=== PATIENT | male | born 1965 ===

== ENCOUNTER 2020-01-02 16:09 | Outpatient (REF) | payer OTHER, SELFPAY ==
[2020-01-02 16:51] LABS: Basophils Percent Auto 0.5 % (0-2); Eosinophils Absolute Auto 0.2 X10*3/uL (0.0-0.4); Eosinophils Percent Auto 4.5 % (0-4); Hematocrit 44.6 % (42-52); Hemoglobin 14.6 g/dl (14.0-18.0); Lymphocytes Absolute Auto 2.1 X10*3/uL (1.2-4.9); Lymphocytes Percent Auto 54.8 % (20-40); MANUAL DIFF FLAG NO; Mean Corpuscular HGB Conc 32.7 g/dl (31.0-36.0); Mean Corpuscular Hemoglobin 28.9 pg (27.0-33.0); Mean Corpuscular Volume 88.3 fL (80-98); Mean Platelet Volume 10.7 fL (9.4-12.4); Monocytes Absolute Auto 0.4 X10*3/uL (0.1-1.2); Monocytes Percent Auto 10.9 % (2-11); Neutrophils Absolute Auto 1.1 X10*3/uL (2.0-8.3); Neutrophils Percent Auto 29.3 % (45-73); Platelet Count 199 X10*3/uL (160-400); Red Blood Count 5.05 X10*6/uL (4.60-5.80); Red Cell Distribution Width 13.3 % (11.0-16.0); White Blood Count 3.8 X10*3/uL (4.8-10.8)
[2020-01-02 17:15] LABS: Alanine Aminotransferase 22 U/L (0-40); Albumin Level 4.5 g/dL (3.5-5.0); Alkaline Phosphatase 80 U/L (39-117); Anion Gap 11 (12-20); Aspartate Amino Transferase 22 U/L (5-37); Bilirubin Total 0.9 mg/dL (0.0-1.0); Blood Urea Nitrogen 22 mg/dL (9-16); Calcium 9.1 mg/dL (8.4-10.2); Carbon Dioxide 31 mmol/L (22-29); Chloride 99 mmol/L (96-108); Cholesterol 253 mg/dL; Estimated Glomerular Filt Rate > 60; Glucose Random 111 mg/dL (60-115); HDL Cholesterol 37 mg/dL; LDL Cholesterol Calculated 177 mg/dl; Potassium 4.4 mmol/l (3.3-5.1); Sodium 137 mmol/L (135-145); Total Protein 7.2 g/dL (6.5-8.0); Triglycerides 198 mg/dL
[2020-01-02 17:36] LABS: Thyroid Stimulating Hormone 1.65 uIU/mL (0.32-4.0)
== END 2020-01-02 16:10 | disposition home or self-care (01) ==
LOC: HO.LAB 16:09
PROVIDERS: PCP Internal Medicine; Visit Provider Internal Medicine
DX: E78.00 Pure hypercholesterolemia, unspecified (principal); S30.860A Insect bite (nonvenomous) of lower back and pelvis, initial encounter; W57.XXXA Bitten or stung by nonvenomous insect and other nonvenomous arthropods, initial encounter
CPT/HCPCS: 36415; 80053; 80061; 84153; 84443; 85025

== ENCOUNTER 2020-01-28 16:07 | Outpatient (REF) | payer OTHER, SELFPAY ==
[2020-01-30 18:11] LABS: Lyme Abs Screen <0.90 index
== END 2020-01-28 16:08 | disposition home or self-care (01) ==
LOC: HO.LAB 16:07
PROVIDERS: PCP Internal Medicine; Visit Provider Internal Medicine
DX: S30.860A Insect bite (nonvenomous) of lower back and pelvis, initial encounter (principal)
CPT/HCPCS: 86618

== ENCOUNTER 2022-05-13 09:07 | Outpatient (REF) | payer OTHER, SELFPAY ==
[2022-05-13 09:21] LABS: MANUAL DIFF FLAG NO
[2022-05-13 09:28] LABS: Basophils Percent Auto 0.5 % (0-2); Eosinophils Absolute Auto 0.2 X10*3/uL (0.0-0.4); Eosinophils Percent Auto 4.9 % (0-4); Hematocrit 43.5 % (42.0-52.0); Hemoglobin 14.7 g/dl (14.0-18.0); Imm Gran Abs Auto 0.01 X10*3/uL (0.00-0.03); Imm Gran Pct Auto 0.3 % (0.0-0.4); Mean Corpuscular HGB Conc 33.8 g/dl (31.0-36.0); Mean Corpuscular Hemoglobin 29.3 pg (27.0-33.0); Mean Corpuscular Volume 86.8 fL (80.0-98.0); Mean Platelet Volume 10.1 fL (9.4-12.4); Monocytes Absolute Auto 0.3 X10*3/uL (0.1-1.2); Monocytes Percent Auto 8.7 % (2-11); Neutrophils Absolute Auto 1.1 x10*3/uL (2.0-8.3); Neutrophils Percent Auto 30.6 % (45-73); Platelet Count 207 X10*3/uL (160-400); Red Blood Count 5.01 X10*6/uL (4.60-5.80); Red Cell Distribution Width 13.4 % (11.0-16.0); White Blood Count 3.7 X10*3/uL (4.8-10.8)
[2022-05-13 10:03] LABS: Appearance Urine Cloudy; Color Urine Yellow; Glucose Urine UA Negative (Negative); Leukocyte Esterase Urine Negative (Negative); Nitrite Urine Negative (Negative); Specific Gravity - Urine <= 1.005 (1.005-1.025); Urine Blood Negative (Negative); Urine Ketones Negative (Negative); Urine Protein Negative (Neg-Trace)
[2022-05-13 10:06] LABS: Estimated Average Glucose 114 mg/dL; Hemoglobin A1c % 5.6 %
[2022-05-13 10:15] LABS: Alanine Aminotransferase 15 U/L (0-40); Albumin Level 4.2 g/dL (3.5-5.0); Alkaline Phosphatase 80 U/L (39-117); Anion Gap 12 (12-20); Aspartate Amino Transferase 22 U/L (5-37); Bilirubin Total 1.7 mg/dL (0.0-1.0); Blood Urea Nitrogen 14 mg/dL (9-16); Calcium 8.9 mg/dL (8.4-10.2); Carbon Dioxide 27 mmol/L (22-29); Chloride 104 mmol/L (96-108); Cholesterol 266 mg/dL; Estimated Glomerular Filt Rate > 60; Glucose Random 85 mg/dL (60-115); HDL Cholesterol 39 mg/dL; LDL Cholesterol Calculated 196 mg/dl; Potassium 4.3 mmol/L (3.3-5.1); Sodium 139 mmol/L (135-145); Total Protein 6.8 g/dL (6.5-8.0); Triglycerides 159 mg/dL
[2022-05-13 10:31] LABS: Folate 7.3 ng/mL (> or = 4.0); Free T4 (Free Thyroxine) 1.04 ng/dL (0.71-1.85); Prostate Specific Antigen Scr 0.52 ng/mL (<0.05-4.0); Thyroid Stimulating Hormone 1.16 uIU/mL (0.32-4.0); Vitamin B12 325 pg/mL (200-900)
== END 2022-05-13 09:08 | disposition home or self-care (01) ==
LOC: HO.LAB 09:07
PROVIDERS: PCP Internal Medicine; Visit Provider Internal Medicine
DX: Z12.5 Encounter for screening for malignant neoplasm of prostate (principal); R39.9 Unspecified symptoms and signs involving the genitourinary system; R73.02 Impaired glucose tolerance (oral); E78.00 Pure hypercholesterolemia, unspecified
CPT/HCPCS: 36415; 80053; 80061; 81003; 82607; 82746; 83036; 84153; 84439; 84443; 85025

== ENCOUNTER 2022-07-11 08:09 | Day surgery (SDC) | payer OTHER, SELFPAY ==
[2022-07-07 14:40] VITALS: BMI 26.4
--- NOTE | 2022-07-10 10:57 | HO.ANESPROP2 ---
Documented by User: Tayler Chapa NP 07/10/22 10:58 HPI - Anesthesia Eval Consult details Narrative: 56yo M for Colonoscopy PMFSH Active Problems Active Problems: All Active Problems (Updated 11/17/21 @ 15:35 by KALEY Higgins) Pre-op examination (Acute) COVID-19 virus infection (Acute) Colon cancer screening (Acute) Carpal tunnel syndrome (Acute) Annual physical exam (Acute) Abnormal blood pressure (Acute) Impaired glucose tolerance (Acute) Tick bite of back (Acute) Hypercholesterolemia (Acute) Past Medical History Medical History (Updated 11/17/21 @ 15:35 by KALEY Higgins) Carpal tunnel syndrome Hypercholesterolemia Rotator cuff tear Tear of right biceps muscle Family History Family History (Updated 11/17/21 @ 15:31 by NAOMI Martin) Father Myocardial infarction Mother No problems noted. Maternal Uncle Myocardial infarction Family/Other Leukemia Surgical History Surgical History (Updated 10/13/21 @ 17:00 by Kateryna Pierce MD) History of repair of rotator cuff Hx of tonsillectomy Social History Social History (Updated 10/13/21 @ 17:01 by Kateryna Pierce MD) Housing: House Alcohol intake: current Alcohol intake frequency: holidays/special occasions only Patient Tobacco Use Status: Never used Tobacco e-Cigarette/Vaping Use: Never Used Second Hand Smoke Exposure: No Current occupational status: employed Cognitive needs: No Hearing needs: No Vision needs: Yes Meds Allergies Allergy/AdvReac Type Severity Reaction Status Date / Time Penicillins [PENICILLINS] Allergy Unknown RASH Verified 11/17/21 15:32 Seasonal Allergy Unknown Unknown Uncoded 10/13/21 16:06 Home Medications Medication Instructions Recorded Confirmed Last Taken Type No Known Home Meds 07/11/22 07/11/22 Unknown History Exam Exam Date and Time: July 10, 2022 1057 Height,Weight and Vital Signs: Height 5 ft 4.5 in Weight 70.76 kg Pertinent Lab Results Pertinent Lab Results: Laboratory Tests 05/13/22 05/13/22 09:19 09:19 WBC 3.7 L Hgb 14.7 Hct 43.5 Plt Count 207 Sodium 139 Potassium 4.3 Chloride 104 Carbon Dioxide 27 BUN 14 Creatinine 1.13 Assessment and Plan Assessment Anesthesia Assessment: Chart Reviewed Documented by User: Gian Romo MD 07/11/22 17:34 [facility] Past Medical History Medical History (Updated 11/17/21 @ 15:35 by KALEY Higgins) Carpal tunnel syndrome Hypercholesterolemia Rotator cuff tear Tear of right biceps muscle Functional capacity: independent ambulation Family History Family History (Updated 11/17/21 @ 15:31 by NAOMI Martin) Father Myocardial infarction Mother No problems noted. Maternal Uncle Myocardial infarction Family/Other Leukemia Family history of problems with anesthesia: No Surgical History Surgical History (Updated 10/13/21 @ 17:00 by Kateryna Pierce MD) History of repair of rotator cuff Hx of tonsillectomy History of Problems with Anesthesia: No Social History Social History (Updated 10/13/21 @ 17:01 by Kateryna Pierce MD) Housing: House Alcohol intake: current Alcohol intake frequency: holidays/special occasions only Patient Tobacco Use Status: Never used Tobacco e-Cigarette/Vaping Use: Never Used Second Hand Smoke Exposure: No Current occupational status: employed Cognitive needs: No Hearing needs: No Vision needs: Yes Meds Allergies Allergy/AdvReac Type Severity Reaction Status Date / Time Penicillins [PENICILLINS] Allergy Unknown RASH Verified 11/17/21 15:32 Seasonal Allergy Unknown Unknown Uncoded 10/13/21 16:06 Home Medications Medication Instructions Recorded Confirmed Last Taken Type No Known Home Meds 07/11/22 07/11/22 Unknown History Exam Airway Mallampati Class: III TM Dist: >3cm Neck ROM: Full Loose/Missing/Broken Teeth: Yes Assessment and Plan Assessment Anesthesia Assessment: Anesthesia Plan Discussed Final Anesthetic Review Family History of Problems with Anesthesia: No History of Problems with Anesthesia: No NPO: Yes ASA Class: II Final Preanesthetic Review: Meds/Allgs Chart Reviewed, Consent Obtained/Reviewed and Anes Risks/Benef Reviewed Patient Risk: Intermediate Procedure Risk: Intermediate Anesthetic Plan Anesthetic Plan: MAC: and Agree w/ Assess. and Plan Disposition: Standard PACU
[2022-07-11 08:12] VITALS: BP 187/91; PULSE 64; RESP 20; TEMP 36.1; O2SAT 100
[2022-07-11 08:27] VITALS: BP 164/74
[2022-07-11] MEDS: Lactated Ringers 1,000 ML 100 ML IVCONT (08:33)
--- NOTE | 2022-07-11 09:03 | MHC.SHP ---
Pre-Procedural Eval Section A Date of Service: 07/11/22 Section B Chief Complaint: screening Relevant Family History (Specify if Yes): No Relevant Social History: None Present Medications: see Short Stay Collaborative assessment Medical History: Significant History (Carpal tunnel syndrome Hypercholesterolemia Rotator cuff tear Tear of right biceps muscle) History of Previous Operations: Relevant previous surgery/procedure and date(s) (rotator cuff repair and tonsil removal ) Allergies: Allergies Allergy/AdvReac Type Severity Reaction Status Date / Time Penicillins [PENICILLINS] Allergy Unknown RASH Verified 11/17/21 15:32 Seasonal Allergy Unknown Unknown Uncoded 10/13/21 16:06 Review of Systems Sugical H&P ROS: Negative: Constitution, Cardiovascular, Respiratory, Neurological, Psychiatric, Hem-Onc, Allergic/Immunologic, Gastrointestinal, Genitourinary, Musculoskeletal, Integumentary, Endocrine and Eyes/Ears/Nose/Throat Exam Surgical H&P Exam: Normal: HEENT, Normal: Heart, Normal: Lungs, Normal: Extremities, Normal: Abdomen, Normal: Skin and Normal: Neurological Plan Diagnosis/Plan: Unchanged I have reviewed the history and physical and performed a pertinent physical examination on my patient. No changes have occurred unless specified. Time Spent With Patient Time: Total time managing care of this patient today ____ minutes.
--- NOTE | 2022-07-11 09:04 | W.PM.OPN ---
Operative Note Operative Note Date of Service: 07/11/22 Narrative: Operative Information Procedure Description: Colonoscopy Indication: screening Anesthesia: MAC COLONOSCOPY Instrument: Olympus variable stiffness pediatric scope 190L Colonoscopy Monitoring: Vital signs and clinical assessment, continuous EKG monitoring, Pulse oximetry, Carbon Dioxide monitoring and blood pressure monitoring were done throughout the procedure. Colon withdrawal time was 13 minutes. Procedure: The patient was placed in the left lateral decubitis position and pre-procedure medications were administered. After a digital rectal examination of the ano-rectum, the video colonoscope was inserted into the rectum and advanced through the colon to the cecum/TI. The colonoscope was slowly withdrawn in a retrograde panoramic fashion and the colon mucosa was carefully examined including a retroflexed view of the rectum. Findings and interventions are described below. Procedure Difficulty: easy Findings: Terminal Ileum-normal Cecum: 5-7 mm sessile polyp removed with cold forceps Ascending Colon: normal Transverse Colon -normal Descending Colon:normal Sigmoid Colon: normal Rectum: Retroflexion with small internal hemorrhoids, grade I Anorectum - normal Colon preparation: Towner Bowel Preparation Scale Right colon; 2 Transverse colon: 2 Left colon; 2 (0 = Unprepared colon segment with mucosa not seen due to solid stool that cannot be cleared. 1 = Portion of mucosa of the colon segment seen, but other areas of the colon segment not well seen due to staining, residual stool and/or opaque liquid. 2 = Minor amount of residual staining, small fragments of stool and/or opaque liquid, but mucosa of colon segment seen well. 3 = Entire mucosa of colon segment seen well with no residual staining, small fragments of stool or opaque liquid) Impression and Post Procedure Diagnosis: polyp internal hemorrhoids Plan: High fiber diet leaflet Avoid straining at stool, epsom salts and sitz bath, anusol supps or cream Repeat Colonoscopy in 5-7 years due to adenomatous appearing polyp or earlier if clinically indicated Above findings were reviewed with the patient and relevant handouts were provided if indicated.
[2022-07-11 09:33] VITALS: BP 96/48; PULSE 71; RESP 16; TEMP 36.2; O2SAT 98
[2022-07-11 09:48] VITALS: BP 92/46; PULSE 59; RESP 16
[2022-07-11 10:03] VITALS: BP 101/56; PULSE 58; RESP 16; O2SAT 99
[2022-07-11 10:18] VITALS: BP 124/64; PULSE 55; RESP 13; TEMP 36.2; O2SAT 96
== END 2022-07-11 10:51 | disposition home or self-care (01) ==
PROVIDERS: PCP Internal Medicine; Visit Provider Internal Medicine Gastroenterology
PROC: 0DJD8ZZ Inspection of Lower Intestinal Tract, Via Natural or Artificial Opening Endoscopic (ICD-10-PCS; CPT 45378; principal; 2022-07-11 10:00)
DX: Z12.11 Encounter for screening for malignant neoplasm of colon (principal); D12.0 Benign neoplasm of cecum; K64.0 First degree hemorrhoids; J30.2 Other seasonal allergic rhinitis; E78.00 Pure hypercholesterolemia, unspecified; R73.02 Impaired glucose tolerance (oral); Z88.0 Allergy status to penicillin; Z98.890 Other specified postprocedural states
CPT/HCPCS: 45380; 88305

== ENCOUNTER 2022-08-03 15:47 | Outpatient (REF) | payer OTHER, SELFPAY ==
[2022-08-03 17:41] LABS: Hemoglobin 14.1 g/dl (14.0-18.0); Mean Corpuscular HGB Conc 33.6 g/dl (31.0-36.0); Mean Corpuscular Hemoglobin 29.3 pg (27.0-33.0); Mean Corpuscular Volume 87.1 fL (80.0-98.0); Mean Platelet Volume 10.8 fL (9.4-12.4); Platelet Count 183 X10*3/uL (160-400); Red Blood Count 4.82 X10*6/uL (4.60-5.80); Red Cell Distribution Width 13.7 % (11.0-16.0)
[2022-08-03 17:44] LABS: Appearance Urine Clear; Color Urine Yellow; Glucose Urine UA Negative (Negative); Leukocyte Esterase Urine Negative (Negative); Nitrite Urine Negative (Negative); PH 6.5 (5.0-9.0); Specific Gravity - Urine <= 1.005 (1.005-1.025); Urine Blood Negative (Negative); Urine Ketones Negative (Negative); Urine Protein Negative (Neg-Trace)
[2022-08-03 18:06] LABS: Anion Gap 12 (12-20); Blood Urea Nitrogen 16 mg/dL (9-16); Calcium 9.1 mg/dL (8.4-10.2); Carbon Dioxide 30 mmol/L (22-29); Chloride 103 mmol/L (96-108); Estimated Glomerular Filt Rate > 60; Glucose Random 74 mg/dL (60-115); Potassium 4.2 mmol/L (3.3-5.1); Sodium 141 mmol/L (135-145)
== END 2022-08-03 15:48 | disposition home or self-care (01) ==
LOC: HO.LAB 15:47
PROVIDERS: PCP Internal Medicine; Visit Provider Physician Assistant
DX: R30.0 Dysuria (principal); R41.0 Disorientation, unspecified; R42 Dizziness and giddiness
CPT/HCPCS: 36415; 80048; 81003; 85027

== ENCOUNTER → 2022-08-07 09:10 | Outpatient (REF) | payer OTHER, SELFPAY ==
--- NOTE | 2022-08-07 09:13 | CA_ITS ---
Acquisition Time: 2022-08-07 10:04:19 Total Exercise Time: 00:13:49 Test Indications: DIZZINESS Medications: SEE H Protocol: GIULIA Max HR: 169 BPM 101% of Pred: 166 BPM Max BP: 180/098 mmHG Max Work Load: 16.8 METS Exercise stress test with exercise 13 min 49 sec of Giulia protocol, achieving 100% MPHR, 16.7 METs, without anginal symptoms, with isolated PVCs and PACs, with elevated BP at baseline and appropriate response with exercise, with EKG changes noted during exercise, inferolateral leads, that corrects very quickly in recovery. Test reviewed with Dr Johnson. Referred By: John Hernandez Overread By: BIB DINH
== END ==
LOC: HO.CARD 09:10
PROVIDERS: PCP Internal Medicine; Visit Provider Physician Assistant
DX: R06.02 Shortness of breath (principal)
CPT/HCPCS: 93017

== ENCOUNTER 2023-02-20 15:35 | Outpatient (AMB) | payer OTHER, SELFPAY ==
[2023-02-20 15:36] VITALS: BP 148/82; PULSE 77; O2SAT 100; BMI 25.3
--- NOTE | 2023-02-20 15:36 | A.OFFPC_ITS ---
Vital Signs 02/20/23 15:36 Height 5 ft 4.5 in Weight 150 lb BMI 25.3 BP 148/82 H Blood Pressure Location Lt brachial Position Sitting Pulse 77 Pulse Source Pulse Oximeter Pulse Oximetry (%) 100 Oxygen Delivery Method Room Air Intake Visit Reasons: PHYSICAL Intake Note: Patient is here today for a physical. 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 Required: No Allergies Penicillins [PENICILLINS] Allergy (Unknown, Verified 02/20/23 15:37) RASH Seasonal Allergy (Unknown, Uncoded 02/20/23 15:37) Unknown Medication List - Last Reconciled 02/20/23 by Kateryna Pierce MD No Known Home Meds Tobacco use date assessed: 02/20/23 Dental Screening Dental Screen Date: 02/20/23 Did you have a dental visit in the last 12 months?: Yes Did you have a dental problem in the last 6 months where you did not have access to dental care?: No Was dental information given to patient?: Patient has dentist HPI PHYSICAL HPI Details 57-year-old male with hypercholesterolem ia impaired glucose tolerance carpal tunnel syndrome coming in for physical exam last seen in September 2021 colonoscopy last June 2022. Noted to have an elevated blood pressure last time. Review of the notes was seen in the ER for dizziness. 02/16/2023 patient was given fluid which helped with dizziness. Noted to have hypertension. Patient had stress test done in July 2022. complains of last week -dizzy vertigo, had an episode on waking up passing out. [facility] Medical History (Updated 02/20/23 @ 16:11 by Kateryna Pierce MD) Carpal tunnel syndrome Rotator cuff tear Tear of right biceps muscle Hypercholesterolemia Surgical History History of colonoscopy History of repair of rotator cuff Hx of tonsillectomy Family History (Updated 02/20/23 @ 16:19 by Kateryna Pierce MD) Father Myocardial infarction Mother No problems noted. Maternal Uncle Myocardial infarction Family/Other Leukemia Paternal Uncle Myocardial infarction Paternal Uncle Myocardial infarction Social History (Updated 02/20/23 @ 16:20 by Kateryna Pierce MD) Housing: House Alcohol intake: current Alcohol intake frequency: holidays/special occasions only Comment: 1=2 x a month 2 beers Patient Tobacco Use Status: Never used Tobacco e-Cigarette/Vaping Use: Never Used Second Hand Smoke Exposure: No service: No Current occupational status: employed Current occupational exposures/hazards: No Cognitive needs: No Hearing needs: No Vision needs: Yes Questionnaire PHQ-9 Over the last 2 weeks, how often have you been bothered by any of the following problems? 1. Little interest or pleasure in doing things: not at all 2. Feeling down, depressed, or hopeless: not at all 3. Trouble falling or staying asleep, or sleeping too much: not at all 4. Feeling tired or having little energy: not at all 5. Poor appetite or overeating: not at all 6. Feeling bad about yourself - or that you are a failure or have let yourself or your family down: not at all 7. Trouble concentrating on things, such as reading the newspaper or watching television: not at all 8. Moving or speaking so slowly that other people could have noticed. Or the opposite - being so fidgety or restless that you have been moving around a lot more than usual: not at all 9. Thoughts that you would be better off or of hurting yourself in some way: not at all Total score: 0 Source: Developed by Drs. Rashard Olmstead, Zoe Chau, Geo Davis and colleagues, with an educational rhys from [employer]. Thrive Questionnaire Date Thrive assessed: 02/20/23 I am a: Patient What is your living situation today?: I have a steady place to live Within the past 12 months, did the food you bought not last and you didn't have the money to get more?: Never true Within the past 12 months, did you worry whether your food would run out before you got money to buy more?: Never true Do you have trouble paying for medicines?: No Do you have trouble getting transportation to medical appointments?: No Do you have trouble paying your heating and electricity bill?: No Do you have trouble taking care of your child, family member or friend?: No Do you have trouble with day-to-day activities such as bathing, preparing meals, shopping, managing finances, etc.?: No Are you currently unemployed and looking for a job?: No Are you interested in more education?: No Please select the resources that you would like help with: None Currently or been in a relationship where the following occur: no concerns reported AUDIT C Alcohol Use Questionnaire (AUDIT-C) 1. How often do you have a drink containing alcohol?: Monthly or less 2. How many drinks containing alcohol do you have on a typical day when you are drinking?: 1 or 2 3. How often do you have six or more drinks on one occasion?: Never Total Score: 1 NEIL-7 AMB Questionnaire NEIL-7 Date NEIL - 7 assessed: 02/20/23 Feeling nervous, anxious, or on edge: 0 = Not at all Not being able to stop or control worryin = Not at all Worrying too much about different things: 0 = Not at all Trouble relaxin = Not at all Being so restless that it is hard to sit still: 0 = Not at all Becoming easily annoyed or irritable: 0 = Not at all Feeling afraid as if something awful might happen: 0 = Not at all Total NEIL-7 score (0-4 normal; 5-9 mild; 10-14 moderate; 15-21 severe): 0 Source: Developed by Drs. Rashard Olmstead, Zoe Chau, Geo Davis and colleagues, with an educational rhys from [employer]. Review of Systems Const Denies poor appetite and Denies weakness Eyes Denies no additional complaints ENT Reports Normal hearing present, Denies dizziness, Denies nasal congestion, Denies tinnitus and Denies sore throat Card Denies chest pain, Denies syncope, Denies rapid heart rate and Denies dyspnea Resp Denies cough and Denies dyspnea GI Denies change in stool character, Reports constipation, Denies diarrhea, Denies nausea and Denies vomiting Denies dysuria and Denies urinary frequency Neuro Reports Normal hearing present, Denies confusion, Denies dizziness, Denies syncope and Denies weakness Psych Denies confusion Physical exam (Primary Care) Vital Signs: Last Vital Signs Pulse 77 02/20/23 15:36 BP 148/82 H 02/20/23 15:36 Pulse Ox 100 02/20/23 15:36 Oxygen Delivery Method Room Air 02/20/23 15:36 BMI result Body Mass Index 25.3 Tobacco/Smoking Status: Tobacco use Status Tobacco use date assessed 02/20/23 02/20/23 15:38 Patient Tobacco Use Status Never used Tobacco 02/20/23 15:38 e-Cigarette/Vaping Use Never Used 02/20/23 15:38 PHQ-9: PHQ-9 Score PHQ-9: Total score 0 02/20/23 15:38 Thrive Assessment: Date of Thrive Assessment Date Thrive assessed 02/20/23 02/20/23 15:38 Currently or been in a relationship where the following occur: no concerns reported Const General: No confusion Orientation/consciousness: No confusion HENMT Head: Yes normocephalic Ears: external ears normal and TM's normal bilaterally Face and sinus: Yes normal facial exam Mouth: moist mucous membranes Throat: Yes tonsils normal Eyes Conjunctivae: conjunctivae normal Pupils: Equal, round and reactive pupils present and Pupil accommodation reflex normal Direct Ophthalmoscopy: normal light reflex Neck Neck: No lymphadenopathy Thyroid: Thyroid normal Chest Chest palpation & inspection: normal inspection of the chest Resp Effort & Inspection: normal respiratory effort and no audible wheezes Auscultation: clear to auscultation bilaterally, no crackles, no wheezes and lung sounds not diminished Cardio Rate: regular rate Rhythm: regular rhythm Peripheral pulses: radial pulses present and dorsalis pedis present GI Palpation (GI): no masses Auscultation: normal bowel sounds and normoactive bowel sounds Rectal Exam - Male: Yes deferred Skin General skin exam: no rashes or lesions noted Rashes: no rashes Neuro General: No confusion Cranial nerves: Yes Equal, round and reactive pupils present and Yes Normal hearing present Cognition (Neuro): normal cognition Gait exam (Neuro): Normal gait present Motor exam (neuro): 5/5 motor strength present throughout Deep tendon reflexes (DTR's): Right brachioradialis reflex intensity grade: 2+, Left brachioradialis reflex intensity grade: 2+, Right patellar reflex intensity grade: 2+ and Left patellar reflex intensity grade: 2+ Extrem General: No edema Assessment and Plan Assessment & Plan (1) Annual physical exam: Code(s): Z00.00 - Encounter for general adult medical examination without abnormal findings (2) Hypertension: Code(s): I10 - Essential (primary) hypertension Plan: Low-salt diet discussed about the problems with hypertension. check BP at home and record and ff up in 2 months (3) Hypercholesterolemia: Code(s): E78.00 - Pure hypercholesterolemia, unspecified Plan: Avoid fried foods, chicken skin, eggs, butter margarine, pastries and meat. Be it pork or beef they have a lot of cholesterol LDL goal of less than 130 and triglyceride of less than 150- retest (4) Tubular adenoma of colon: Comment: June 2022 tubular adenoma Code(s): D12.6 - Benign neoplasm of colon, unspecified Plan: Advised repeat colonoscopy in 5-7 years Orders: Orders Lipid Panel Today E78.00 - Pure hypercholesterolemia, unspecified Free T4 (Free Thyroxine) Today E78.00 - Pure hypercholesterolemia, unspecified Vitamin B12 and Folate Today E78.00 - Pure hypercholesterolemia, unspecified Prostate Specific Antigen Scr Today E78.00 - Pure hypercholesterolemia, unspecified Complete Blood Count Auto Diff Today E78.00 - Pure hypercholesterolemia, unspecified Comprehensive Met. Panel Today E78.00 - Pure hypercholesterolemia, unspecified Thyroid Stimulating Hormone Today E78.00 - Pure hypercholesterolemia, unspecified Hemoglobin A1c Today R73.02 - Impaired glucose tolerance (oral) Coding Level of Care Code Est Pt Prev Care 40-64y(40300) Diagnoses Annual physical exam Z00.00 Hypertension I10 Hypercholesterolemia E78.00 Tubular adenoma of colon D12.6
== END 2023-02-20 16:36 | disposition home or self-care (01) ==
PROVIDERS: PCP Internal Medicine; Visit Provider Internal Medicine
DX: Z00.00 Encounter for general adult medical examination without abnormal findings (principal); I10 Essential (primary) hypertension; E78.00 Pure hypercholesterolemia, unspecified; D12.6 Benign neoplasm of colon, unspecified
CPT/HCPCS: 99396

== ENCOUNTER 2023-07-31 09:14 | Outpatient (AMB) | payer OTHER, SELFPAY ==
--- NOTE | 2023-07-31 09:18 | A.OFFPC_ITS ---
Vital Signs 07/31/23 09:20 07/31/23 09:26 Height 5 ft 4.5 in Weight 148 lb 2 oz BMI 25.0 BP 150/80 H 148/82 H Blood Pressure Location Lt brachial Lt brachial Position Sitting Sitting Pulse 71 Pulse Source Pulse Oximeter Pulse Oximetry (%) 97 Oxygen Delivery Method Room Air Intake Visit Reasons: Hernia F/U Intake Note: Patient is here to follow up on Hernia. Requesting for referral for GI for possible Hernia. Nuisance Wildlife Trapper Required: No Pulmonologist/Intensivist: Not Required per policy Accompanied by: Self / Same As Patient Allergies Penicillins [PENICILLINS] Allergy (Unknown, Verified 08/03/23 14:56) RASH Seasonal Allergy (Unknown, Uncoded 08/03/23 14:56) Unknown Medication List - Last Reconciled 08/03/23 by Neil Valero MD No Known Home Meds Tobacco use date assessed: 07/31/23 Dental Screening Dental Screen Date: 02/20/23 HPI Hernia F/U HPI Details 57 yr old male presents to the office fo r a sick visit. Patient wonders if he has an abdominal hernia. Minimal discomfirt in the epigastric area. No belching or burping. Not passing excessive gas. No weight loss. [facility] Medical History (Updated 02/20/23 @ 16:11 by Kateryna Pierce MD) Carpal tunnel syndrome Rotator cuff tear Tear of right biceps muscle Hypercholesterolemia Surgical History History of colonoscopy History of repair of rotator cuff Hx of tonsillectomy Family History Father Myocardial infarction Mother No problems noted. Maternal Uncle Myocardial infarction Family/Other Leukemia Paternal Uncle Myocardial infarction Paternal Uncle Myocardial infarction Social History Housing: House Alcohol intake: current Alcohol intake frequency: holidays/special occasions only Comment: 1=2 x a month 2 beers Patient Tobacco Use Status: Never used Tobacco e-Cigarette/Vaping Use: Never Used Second Hand Smoke Exposure: No service: No Current occupational status: employed Current occupational exposures/hazards: No Cognitive needs: No Hearing needs: No Vision needs: Yes Questionnaire Thrive Questionnaire Date Thrive assessed: 02/20/23 NEIL-7 AMB Questionnaire NEIL-7 Date NEIL - 7 assessed: 02/20/23 Source: Developed by Drs. Rashard Olmstead, Zoe Chau, Geo Davis and colleagues, with an educational rhys from [employer]. Physical exam (Primary Care) Vital Signs: Last Vital Signs Pulse 71 07/31/23 09:20 BP 148/82 H 07/31/23 09:26 Pulse Ox 97 07/31/23 09:20 Oxygen Delivery Method Room Air 07/31/23 09:20 BMI result Body Mass Index 25.0 Tobacco/Smoking Status: Tobacco use Status Tobacco use date assessed 07/31/23 07/31/23 09:26 Patient Tobacco Use Status Never used Tobacco 07/31/23 09:26 e-Cigarette/Vaping Use Never Used 07/31/23 09:26 Thrive Assessment: Date of Thrive Assessment Date Thrive assessed 02/20/23 07/31/23 09:26 Const General: cooperative and healthy appearing Nutritional Appearance: well nourished Orientation/consciousness: patient oriented x3 Limitations: no limitations HENMT Head: Yes normal to inspection Eyes General: appearance normal, both eyes and all related structures Neck Neck: Yes normal visual inspection Chest Chest palpation & inspection: normal palpation of entire chest wall Resp Effort & Inspection: normal respiratory effort Neuro General: patient oriented x3 Assessment and Plan Assessment & Plan (1) Abdominal pain: Code(s): R10.9 - Unspecified abdominal pain Plan: No evidence of hernia. Pt was reassured. Coding Level of Care Code Est Pt Level 3 (87969) Diagnoses Abdominal pain R10.9
[2023-07-31 09:20] VITALS: BP 150/80; PULSE 71; O2SAT 97; BMI 25.0
[2023-07-31 09:26] VITALS: BP 148/82
== END 2023-07-31 10:26 | disposition home or self-care (01) ==
PROVIDERS: PCP Internal Medicine; Visit Provider Internal Medicine
DX: R10.9 Unspecified abdominal pain (principal)
CPT/HCPCS: 99213

== ENCOUNTER 2023-10-16 11:52 | Outpatient (AMB) | payer OTHER, SELFPAY ==
[2023-10-16 11:58] VITALS: BP 147/73; PULSE 72; BMI 25.0
--- NOTE | 2023-10-16 11:58 | A.OFFVIS_ITS ---
Vital Signs 10/16/23 11:58 Height 5 ft 4.5 in Weight 147 lb 11.355 oz BMI 25.0 BP 147/73 H Blood Pressure Location Lt brachial Position Sitting Pulse 72 Intake Visit Reasons: EGD screening Intake Note: Patient in office today to discuss EGD screening. CC: Patient reports that he was seen at [facility] ER with c/o chest pain and difficulty breathing last June. He states that he was told that he has a hiatal hernia that is causing him GERD. He was started on PPI but states that he d/c'd the medication because he is not having anymore symptoms. 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 He denies any cardiac or respiratory problems. No ID problems. There is no known FHX of crc or polyps. Orders: Orders Comprehensive Met. Panel Today Z01.818 - Encounter for other preprocedural examination Complete Blood Count Auto Diff Today Z01.818 - Encounter for other preprocedural examination Medications: New peg 3350-electrolytes 236-22.74-6.74 -5.86 gram (Golytely) until fecal effluent is clear; do not exceed a total volume of 2,000 mL 240 mL PO Q10M 1 day 4,000 mL 0RF Z12.11 - Encounter for screening for malignant neoplasm of colon Labs: Laboratory Tests 05/13/22 08/03/22 09:19 16:00 WBC 4.0 L Hgb 14.1 Hct 42.0 Plt Count 183 Estimated GFR > 60 Total Bilirubin 1.7 H AST 22 ALT 15 Alkaline Phosphatase 80 TSH 1.16 Free T4 1.04 COLONOSCOPY 07/11/22 Findings: Terminal Ileum-normal Cecum: 5-7 mm sessile polyp removed with cold forceps Ascending Colon: normal Transverse Colon -normal Descending Colon:normal Sigmoid Colon: normal Rectum: Retroflexion with small internal hemorrhoids, grade I Anorectum - normal Impression and Post Procedure Diagnosis: polyp internal hemorrhoids Plan: High fiber diet leaflet Avoid straining at stool, epsom salts and sitz bath, anusol supps or cream Repeat Colonoscopy in 5-7 years due to adenomatous appearing polyp or earlier if clinically indicated Received: 07/11/22 Diagnosis Cecum, polypectomy: Tubular adenoma with prominent lymphoid aggregate; negative for high-grade dysplasia or carcinoma. TODAY'S VISIT Patient has been lost to follow-up since 06/2022 and apparently is here today for an evaluation of GERD. He was seen at the [place] ER for a strange sensation that started in the low chest and over time radiated up higher and then he developed SOB. He went to a couple of urgent cares w/o [facility], [place] and then went to [place]. He was put on a PPE for 30 days and then he felt better. He was told he may have a HH. He then saw a covering provider for Dr. Pierce who told him to continue the medication (it was pantoprazole) but he didn't because he felt better. He was quite frustrated with the whole ordeal and had lost about 8-10 lbs. 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 Clearly there is a large differential diagnosis here and we need to do some further investigation so I think we should start with an H pylori test, a barium swallow and an ultrasound of the abdomen to see if there is any reason to suspect that the gallbladder is contributing to his sudden onset of symptoms. The barium swallow also help us evaluate if there is a large hiatal hernia or other esophageal movement disorder or anatomic abnormality contributing to his symptoms. In the meantime I encouraged him to continue the pantoprazole and I am quite willing to refill it for him. Return office visit in 12 weeks to go over what we have so far and see how he is feeling. [facility] Medical History (Updated 11/13/23 @ 17:34 by KALEY Higgins) Tick bite of back Annual physical exam COVID-19 virus infection Colon cancer screening Pre-op examination Carpal tunnel syndrome Rotator cuff tear Tear of right biceps muscle Hypercholesterolemia Surgical History History of colonoscopy History of repair of rotator cuff Hx of tonsillectomy Family History Father Myocardial infarction Mother No problems noted. Maternal Uncle Myocardial infarction Family/Other Leukemia Paternal Uncle Myocardial infarction Paternal Uncle Myocardial infarction Social History Housing: House Alcohol intake: current Alcohol intake frequency: holidays/special occasions only Comment: 1=2 x a month 2 beers Patient Tobacco Use Status: Never used Tobacco e-Cigarette/Vaping Use: Never Used Second Hand Smoke Exposure: No service: No Current occupational status: employed Current occupational exposures/hazards: No Cognitive needs: No Hearing needs: No Vision needs: Yes Review of Systems Const Denies fatigue, Denies fever(s), Denies night sweats, Denies poor appetite and Reports weight loss ENT Reports Normal hearing present, Denies dental pain, Denies dysphagia, Denies hearing loss, Denies mouth pain, Denies odynophagia, Denies throat swelling, Denies tongue swelling and Reports other (Dentition adequate) Card Reports chest pain Resp Reports no additional complaints GI Details: Reports abdominal pain, Denies melena, Denies bloating, Denies hematochezia, Denies constipation, Denies GI cramping, Denies dysphagia, Denies excessive flatus, Denies early satiety, Reports heartburn, Denies diarrhea, Denies nausea, Denies odynophagia, Denies vomiting and Denies hematemesis Skin/Breast Denies pruritus, Denies lesions, Denies rash and Denies jaundice Neuro Reports Normal hearing present and Denies Abnormal speech present Endo Denies fatigue Aller/Immun Denies throat swelling and Denies tongue swelling Physical Exam Vital Signs: Last Vital Signs Pulse 72 10/16/23 11:58 BP 147/73 H 10/16/23 11:58 BMI result Body Mass Index 25.0 Const General: cooperative, no acute distress, well developed and well groomed Nutritional Appearance: average body habitus and well nourished Orientation/consciousness: oriented to person, oriented to place and oriented to time Limitations: No language barrier HEENT Head: Yes normocephalic and Yes atraumatic Eyes General: appearance normal, both eyes and all related structures Pupils: Equal, round and reactive pupils present Neck Neck: Yes normal visual inspection and Yes no lymphadenopathy Thyroid: Thyroid normal Resp Effort & Inspection: normal respiratory effort and able to speak in complete sentences Auscultation: clear to auscultation bilaterally Cardio Rate: regular rate Rhythm: regular rhythm Heart sounds: Normal, physiologic split S2 sound present Peripheral pulses: radial pulses present and posterior tibial pulses present GI Inspection: No distended and No Abdominal panniculus present Palpation (GI): Soft to palpation, nontender, no guarding, not rigid and No hepatosplenomegaly present Percussion: Yes normal to percussion Auscultation: normal bowel sounds Rectal Exam - Male: Yes deferred Skin General skin exam: no rashes or lesions noted, turgor normal, skin not dry, no jaundice, No spider nevi and no striae Rashes: no rashes Nails: normal Neuro General: oriented to person, oriented to place and oriented to time Cranial nerves: Yes Equal, round and reactive pupils present and Yes Normal hearing present Speech: No Abnormal speech present Extrem General: Yes normal to inspection, No clubbing, No cyanosis and No edema Psych Appearance: grossly normal and well kempt Mental Status: mental status grossly normal Speech and movement: Normal speech and movement present Affect: normal affect Attitude: cooperative Thought process: Normal thought process present and not confabulating Thought content: Normal thought content present Insight: Limited insight present (Psych) Judgement: Limited judgement present (Psych) Results Reviewed Results Reviewed: Laboratory Tests 05/13/22 08/03/22 09:19 16:00 WBC 4.0 L Hgb 14.1 Hct 42.0 Plt Count 183 Estimated GFR > 60 Total Bilirubin 1.7 H AST 22 ALT 15 Alkaline Phosphatase 80 TSH 1.16 Free T4 1.04 COLONOSCOPY 07/11/22 Findings: Terminal Ileum-normal Cecum: 5-7 mm sessile polyp removed with cold forceps Ascending Colon: normal Transverse Colon -normal Descending Colon:normal Sigmoid Colon: normal Rectum: Retroflexion with small internal hemorrhoids, grade I Anorectum - normal Impression and Post Procedure Diagnosis: polyp internal hemorrhoids Plan: High fiber diet leaflet Avoid straining at stool, epsom salts and sitz bath, anusol supps or cream Repeat Colonoscopy in 5-7 years due to adenomatous appearing polyp or earlier if clinically indicated Received: 07/11/22 Diagnosis Cecum, polypectomy: Tubular adenoma with prominent lymphoid aggregate; negative for high-grade dysplasia or carcinoma. Assessment & Plan Assessment & Plan (1) GERD (gastroesophageal reflux disease): Code(s): K21.9 - Gastro-esophageal reflux disease without esophagitis Category: Medical (2) Epigastric abdominal pain: Code(s): R10.13 - Epigastric pain Category: Medical (3) Tubular adenoma of colon: Comment: June 2022 tubular adenoma, repeat in 5 years Code(s): D12.6 - Benign neoplasm of colon, unspecified Category: Medical Plan Patient has been lost to follow-up since 06/2022 and apparently is here today for an evaluation of GERD. He was seen at the [place] ER for a strange sensation that started in the low chest and over time radiated up higher and then he developed SOB. He went to a couple of urgent cares w/o [facility], [place] and then went to [place]. He was put on a PPE for 30 days and then he felt better. He was told he may have a HH. He then saw a covering provider for Dr. Pierce who told him to continue the medication (it was pantoprazole) but he didn't because he felt better. He was quite frustrated with the whole ordeal and had lost about 8-10 lbs. 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 Clearly there is a large differential diagnosis here and we need to do some further investigation so I think we should start with an H pylori test, a barium swallow and an ultrasound of the abdomen to see if there is any reason to suspect that the gallbladder is contributing to his sudden onset of symptoms. The barium swallow also help us evaluate if there is a large hiatal hernia or other esophageal movement disorder or anatomic abnormality contributing to his symptoms. In the meantime I encouraged him to continue the pantoprazole and I am quite willing to refill it for him. Return office visit in 12 weeks to go over what we have so far and see how he is feeling. Orders: Orders H Pylori Breath Test 10/16/23 K21.9 - Gastro-esophageal reflux disease without esophagitis, R10.13 - Epigastric pain US abdomen complete 10/16/23 K21.9 - Gastro-esophageal reflux disease without esophagitis, R10.13 - Epigastric pain FL barium swallow modified 10/16/23 K21.9 - Gastro-esophageal reflux disease without esophagitis, R10.13 - Epigastric pain Medications: Discontinued omeprazole Discontinued Reason: Doctor's Order 20 mg PO DAILY 14 caps 0RF Coding Level of Care Code Est Pt Level 4 (48280) Diagnoses GERD (gastroesophageal reflux disease) K21.9 Epigastric abdominal pain R10.13 Tubular adenoma of colon D12.6 Time Spent (min) 38
== END 2023-10-16 12:57 | disposition home or self-care (01) ==
PROVIDERS: PCP Internal Medicine; Visit Provider Nurse Practitioner
DX: K21.9 Gastro-esophageal reflux disease without esophagitis (principal); R10.13 Epigastric pain; D12.6 Benign neoplasm of colon, unspecified
CPT/HCPCS: 99214

== ENCOUNTER 2023-10-16 11:52 | Outpatient (REF) | payer OTHER, SELFPAY ==
[2023-10-17 09:16] LABS: H Pylori Breath Test Negative (Negative)
== END 2023-10-16 11:53 | disposition home or self-care (01) ==
LOC: HO.LNP 11:52
PROVIDERS: PCP Internal Medicine; Visit Provider Nurse Practitioner
DX: K21.9 Gastro-esophageal reflux disease without esophagitis (principal); R10.13 Epigastric pain
CPT/HCPCS: 83013

== ENCOUNTER 2023-11-02 07:46 | Outpatient (REF) | payer OTHER, SELFPAY ==
--- NOTE | ~2023-11-02 | US_ITS ---
EXAMINATION: US ABDOMEN COMPLETE CLINICAL INFORMATION: Gastroesophageal reflux disease without esophagitis. COMPARISON: None available. TECHNIQUE: Real-time imaging of the abdominal viscera. FINDINGS: PANCREAS: The pancreas appears unremarkable, without masses or ductal dilatation, with the exception of the tail which is obscured by bowel gas. ABDOMINAL AORTA: The proximal, mid, and distal segments are normal in caliber. INFERIOR VENA CAVA: Visualized portions are normal. LIVER: Normal. The liver is normal in size. The liver contour is normal. Parenchymal echogenicity is normal. No focal hepatic lesion. There is no intrahepatic biliary duct dilatation seen. GALLBLADDER: Normal. The gallbladder is physiologically distended without evidence of stones, sludge, polyps, wall thickening or pericholecystic fluid. COMMON BILE DUCT: Normal in caliber measuring 0.5 cm in diameter. RIGHT KIDNEY: A benign parapelvic mid renal 2.3 cm Bosniak class I cyst is noted which requires no additional imaging or followup. No solid renal masses are seen. No hydronephrosis or renal calculi. The kidney measures 10.7 cm in maximum dimension. LEFT KIDNEY: Normal. No hydronephrosis. No renal calculi or focal parenchymal lesions. The kidney measures 11.7 cm in maximum dimension. SPLEEN: Normal. The spleen measures 9.1 cm in maximum dimension. FREE FLUID: None. US/US abdomen complete IMPRESSION: No significant abnormality is seen. Electronically signed by: Carlo Booker MD 11/07/2023 03:09 PM EDT
== END 2023-11-02 07:47 | disposition home or self-care (01) ==
LOC: HO.US 07:46
PROVIDERS: PCP Internal Medicine; Visit Provider Nurse Practitioner
DX: R10.13 Epigastric pain (principal); K21.9 Gastro-esophageal reflux disease without esophagitis
CPT/HCPCS: 76700